=== PATIENT | male | born 1975 | race Caucasian/White ===

== ENCOUNTER → 2021-05-07 | Outpatient (CLI) | payer OTHER | LOC: COL.RAD 09:48 | DX: Z02.71 Encounter for disability determination (principal); R53.1 Weakness; R26.89 Other abnormalities of gait and mobility; R10.2 Pelvic and perineal pain ==

== ENCOUNTER → 2021-06-12 | Outpatient (CLI) | payer OTHER | LOC: COL.RAD 09:57 | DX: Z02.71 Encounter for disability determination (principal); M51.36 Other intervertebral disc degeneration, lumbar region ==

== ENCOUNTER 2021-12-05 14:57 | Observation (INO) | payer SELFPAY ==
[2021-12-05] VITALS (11 sets, daily range): BP systolic 101–124; BP diastolic 67–99; PULSE 72–95; TEMP 97.9–98.4
[~2021-12-05] VITALS: Ht 185.4 cm; Wt 77.0 kg
[2021-12-05 15:01] LABS: TRICYCLIC ANTIDEPRESS URINE NEGATIVE
--- NOTE | 2021-12-05 16:17 | NUR ---
PATIENT ADMITTED TO ROOM 6 PER CART FROM [facility] PER EMS. STANDS AND TRANSFERS WITH ONE PERSON ASSIST. COMPLAINS OF PAIN WITH MOVEMENT AND RESIDES WHEN RESTING. PATIENT VERY POOR HISTORIAN WITH MEDICATIONS AND MEDICAL HISTORY. IV FLUIDS INFUSING AND SITE IS FREE OF REDNESS. CALL LIGHT IN REACH. SIDERAILS UP X2 AND CALL LIGHT IN REACH. NO ONE ACCOMPAINED THE PATIENT.
--- NOTE | 2021-12-05 18:29 | NUR ---
Pt arrived to room 309 at this time. He is A/O x4, breathing is even and unlabored on RA. Lungs CTA. HRR. Denies pain. +BS. Pt very hungry and requesting food, sandwich box provided. Sores to top of head, and tip of second and third toes. Heels cracked. Three way garcia in place with CBI running. IVF started to RAC. POC discussed with patient who verbalizes understanding. Call light within reach.
[2021-12-05 22:59] LABS: ARTERIAL BLD GAS O2 SATURATION 94.6 % (92-100); ARTERIAL BLD GAS TCO2 CT 28.6; ARTERIAL BLOOD GAS BASE EXCESS 3.8 (-2-2); ARTERIAL BLOOD GAS HCO3 27.5 meq/L (22-26); ARTERIAL BLOOD GAS PO2 66.3 mmHg (80-100); ARTERIAL BLOOD GAS pH 7.48 (7.35-7.45)
[2021-12-05 23:09] LABS: HEMOGLOBIN 11.5 g/dl (13.5-18.0); MEAN CELL VOLUME 88 fl (80.0-100.0); MEAN CORPUSCULAR HEMOGLOBIN 29 pg (27-31); MEAN CORPUSCULAR HGB CONC 33 g/dl (33.0-37.0); MEAN PLATELET VOLUME 9.4 fl (7.4-10.4); PLATELET COUNT 275 K/mm3 (130-400); RED BLOOD COUNT 3.93 M/mm3 (4.20-5.60); REDCELL DISTRIBUTION WIDTH-CV 14.6 % (11.5-14.5)
[2021-12-05 23:23] LABS: ACETONE,SERUM NEGATIVE
[2021-12-05 23:29] LABS: ALANINE AMINOTRANSFERASE 31 U/L (0-55); ALKALINE PHOSPHATASE 101 U/L (40-150); ANION GAP 9 mmol/L (7-16); AST,SGOT 44 U/L (5-34); BILIRUBIN,TOTAL 0.2 mg/dL (0.2-1.2); BLOOD UREA NITROGEN 15 mg/dL (9-21); CALCIUM 8.1 mg/dL (8.4-10.2); CARBON DIOXIDE 24 mmol/L (22-29); CHLORIDE 98 mmol/L (98-107); CREATININE, serum 0.74 mg/dL (0.72-1.25); GLUCOSE 400 mg/dL (70-99); POTASSIUM 3.9 mmol/L (3.5-4.5); SODIUM 131 mmol/L (136-145); TOTAL PROTEIN 5.6 gm/dL (6.2-8.1)
--- NOTE | 2021-12-05 23:37 | NUR ---
Patient on CBI, running slow. Urine is clear and yellow. Denies having pain and discomfort. Patient's BS was 404. Called and updated Dr. Amezquita, on air host for Dr. Jung around 2114. Given 12 units SQ insulin per sliding scale. Also ordered a hospitalist consult to help manage diabetes. Updated LOREE Knott. Labs/ABG ordered. Awaiting further orders at this time. In bed with call light within reach.
[2021-12-05 23:41] LABS: HEMATOCRIT 34.7 % (42.0-52.0)
[2021-12-05 23:52] LABS: BAND 14 % (0-10); BASOPHIL 1 % (0-2); LYMPHOCYTE 4 % (20.0-51.0); MYELOCYTE 1 % (0-0); NEUTROPHILS 75 % (42.0-75.2); PLATELET ESTIMATE NORMAL (NORMAL)
[2021-12-06 01:12] VITALS: BP 108/74; PULSE 88; TEMP 98.4
[2021-12-06 03:19] VITALS: BP 119/81; PULSE 78; TEMP 99.1
--- NOTE | 2021-12-06 05:48 | NUR ---
Patient has denied having pain and discomfort this shift. Continues on CBI, running slow. Urine clear and yellow. Continues on IV fluids per orders. Received insulin per orders. Voices no questions, needs, or concerns at this time. In bed with call light within reach.
--- NOTE | 2021-12-06 07:14 | NUR ---
PT AWAKE,ALERT AND ORIENTX4, BREAKFAST ORDERED.
[2021-12-06] MEDS ORDERED: OMNICEF 300MG300 MG PO (07:20)
[2021-12-06 07:21] VITALS: BP 125/82; PULSE 90; TEMP 97.8
[2021-12-06] MEDS ORDERED: NOVOLIN 70/30 710 ML SQ (10:00)
[2021-12-06] MEDS ORDERED: B-D SAFETY GLID1 DE1 SQ (10:00)
[2021-12-06] MEDS ORDERED: BD ALCOHOL1 SWA MC (10:00)
[2021-12-06] MEDS ORDERED: FREESTYLE PREC1 EAC5 MC (10:00)
[2021-12-06] MEDS ORDERED: GLUCOSE TEST ST1 DEV MC (10:00)
[2021-12-06] MEDS ORDERED: LANCETS MC (10:00)
--- NOTE | 2021-12-06 12:00 | NUR ---
pt discharged from the unit to go home, vs stable, alert and orient x4, cib discontnued, home with the a leg bag, pt educated on self insulin administration with a returned demonstration. educated of garcia care pt verbalize understanding, iv discontinued tip intact. pt escoted out of the building by the unit tech, pt accompanied home by his mother.
--- NOTE | 2021-12-06 12:34 | NUR ---
Crab Picker met with patient to discuss discharge planning. Patient states he is ready to go home today. Patient lives in [place] with his dad, Jay (ph#[phone]) [address] Joceline Rivera for primary care. Patient is self pay and will need antibiotics, insulin, and diabetic testing equipment. Medication voucher provided to patient totaling $221 and meds to be picked up at [facility]. Patient does not have DPOA-HC and is not interested in completing one at this time. Patient is not and has no children. Patient's parents are his legal next of kin. SW contacted patient's father, Jay who advised they will pear picker patient today and take him to [facility] before returning to [place]. Discharge Plan: Home
== END 2021-12-06 12:00 | disposition home or self-care (01) ==
LOC: INPTSU 14:57 → SURG 16:00 → EDSTATUS 16:00 → SDCO 16:00 → MEDICAL 18:57
PROVIDERS: Nurse Practitioner Family; Registered Nurse; ADMIT Urology
DX: N40.1 Benign prostatic hyperplasia with lower urinary tract symptoms (principal); R33.8 Other retention of urine; N41.0 Acute prostatitis; N39.0 Urinary tract infection, site not specified; E11.65 Type 2 diabetes mellitus with hyperglycemia; F17.210 Nicotine dependence, cigarettes, uncomplicated; F19.11 Other psychoactive substance abuse, in remission; Z79.4 Long term (current) use of insulin; Z86.14 Personal history of Methicillin resistant Staphylococcus aureus infection
CPT/HCPCS: G0378; J0690; J0696; J1100; J1815; J2405; J2704; J3010; J3480; J7120